=== PATIENT | male | born 1955 | race Caucasian/White ===

== ENCOUNTER 2018-09-17 13:20 | Emergency (ER) | payer OTHER, MEDICARE ==
[~2018-09-17] VITALS: Ht 172.7 cm; Wt 76.7 kg
--- NOTE | 2018-09-17 13:47 | NUR ---
CAME IN W C/O "i SLIPPED IN THE KITCHEN LAST NIGHT AND I THINK I PULLED MY SHOUKDER OUT FROM THE SOCKET, I AM IN PAIN", 12/04 PS. TO ER BED 1, HOOKED TO MONITOR, CHANGED TO GOWN, PROVIDED W WARM BLANKET, PT AOX4 , NOT IN DISTRESS, AWAITING MD DAMON
--- NOTE | 2018-09-17 14:22 | NUR ---
DR BEASLEY AT BEDSIDE
[2018-09-17] MEDS ORDERED: IV NS 0.9% 1,000 ML BAG IV ONE (14:30)
[2018-09-17] MEDS ORDERED: FENTANYL PF 100MCG/2ML AMPUL IV ONE (14:30)
[2018-09-17] MEDS ORDERED: FENTANYL PF 100MCG/2ML AMPUL ONE (14:32)
--- NOTE | 2018-09-17 14:39 | NUR ---
CURTAIN CUTTER HAND AT BEDSIDE
[2018-09-17] MEDS ORDERED: PROPOFOL 0 ML ONE (14:44)
[2018-09-17] MEDS ORDERED: PROPOFOL 20 ML IV ONE (14:45)
--- NOTE | 2018-09-17 14:54 | NUR ---
DISCUSSED THE PROCEDURE INCLUDING RISKS AND BENEFITS TO PATIENT. SPOUSE SIGNED CONSENT FOR R SHOULDER REDUCTION UNDER MODERATE SEDATION
--- NOTE | 2018-09-17 15:08 | NUR ---
SHOULDER IMMOBILIZER APPLIED BY TECH.
--- NOTE | 2018-09-17 15:13 | NUR ---
PT AWAKE, STAFF THERAPIST AT BEDSIDE
--- NOTE | 2018-09-17 15:59 | NUR ---
IV removed. Catheter intact and site benign. Pressure and 4x4 applied to site. No bleeding noted.Patient discharged to home in stable condition. Written and verbal after care instructions given. Patient verbalizes understanding of instruction.
[2018-09-17 16:00] VITALS: BP 150/80
== END 2018-09-17 16:01 | disposition home or self-care (01) ==
LOC: ER 13:20
DX: S43.084A Other dislocation of right shoulder joint, initial encounter (principal); F17.200 Nicotine dependence, unspecified, uncomplicated; Z98.890 Other specified postprocedural states; W01.198A Fall on same level from slipping, tripping and stumbling with subsequent striking against other object, initial encounter; Y93.89 Activity, other specified; Y92.090 Kitchen in other non-institutional residence as the place of occurrence of the external cause; Y99.8 Other external cause status
CPT/HCPCS: 23650; 73020 ×2; 99152; 99285; 99406; J2704; J3010; J7030; G0500; J3490